=== PATIENT | female | born 1955 | race African-American/Black ===

== ENCOUNTER 2016-12-26 07:27 | Day surgery (SDC) | payer BC ==
[2016-12-22 16:28] LABS: Basophils # (auto) 0 uL; Basophils % (auto) 0.9 % (0.0-2.0); Eosinophils # (auto) 0.6 uL; Eosinophils % (auto) 10.4 % (0.0-7.0); Hematocrit 39.3 % (36.0-46.0); Hemoglobin 12.9 g/dL (12.2-16.2); Lymphocytes % (auto) 34.7 % (10.0-50.0); Mean Corpuscular Hgb Conc. 32.8 g/dL (32.0-36.0); Mean Corpuscular Volume 85.4 fL (80.0-100.0); Mean Platelet Volume 8.8 fL (7.4-10.4); Monocytes # (auto) 0.3 uL; Monocytes % (auto) 5.5 % (0.0-12.0); Neutrophils # (auto) 2.8 uL; Neutrophils % (auto) 48.5 % (37.0-80.0); Platelet Count (auto) 298 10^3/uL (140-450); Red Cell Distribution Width 15.4 % (11.6-16.0); White Blood Cell 5.8 10^3/uL (4.4-10.8)
[2016-12-22 16:35] LABS: Urine Bilirubin Negative (Negative); Urine Blood Negative /uL (Negative); Urine Color Yellow (Yellow); Urine Glucose Normal (Normal); Urine Ketone Negative (Negative); Urine Mucus FEW (None Seen); Urine Nitrite Negative (Negative); Urine RBC 1 /hpf (0 - 4); Urine Squamous Epithelial Cell FEW /hpf (<5); Urine Urobilinogen Normal (Negative)
[2016-12-22 16:40] LABS: INR 0.96 (0.9-1.15); Partial Thromboplastin Time 29.2 sec (22.64-33.71); Prothrombin Time 10.5 sec (9.37-12.3)
[2016-12-22 16:51] LABS: Albumin 3.4 g/dL (3.4-5.0); BUN/Creatinine Ratio 22.5; Calcium 9.2 mg/dL (8.5-10.1)
[2016-12-22 16:55] LABS: Bilirubin, Total 0.4 mg/dL (0.2-1.0); Total Protein 7.8 g/dL (6.4-8.2)
[~2016-12-26] VITALS: Ht 162.6 cm; Wt 104.3 kg
[~2016-12-26 07:27] MED LIST: ASCO100076 PO; CHOL100079 OR; CLINDAMYCIN 600MG IV 50 ML IV ONE; MELO-86 PO; MULTTAB99 PO; NAPR-223 PO; NITR-52 PO; SOLI10TA6 PO; [UNRECOGNIZED DRUG - CODE] OR
[2016-12-26] MEDS ORDERED: BUPIVACAINE 0.25% INJ 50ML VIAL ONE (08:09)
[2016-12-26] MEDS ORDERED: LIDOCAINE 1% HCL (LOCAL ANESTH.) INJ 20ML MDV ONE (08:48)
[2016-12-26] MEDS ORDERED: ONDANSETRON HCL 4 MG/2 ML VIAL ONE (09:04)
[2016-12-26] MEDS ORDERED: DEXAMETHASONE SOD PHOS 10MG/1ML VIAL INJ ONE (09:04)
[2016-12-26] MEDS ORDERED: GLYCOPYRROLATE 0.2 MG/ML 1ML VIAL ONE (09:04)
[2016-12-26] MEDS ORDERED: fentaNYL CITRATE 100 MCG/2 ML VL ONE (09:04)
[2016-12-26] MEDS ORDERED: PROPOFOL 10 MG/ML 20 ML IV ONE (09:16)
[2016-12-26] MEDS ORDERED: MORPHINE SULF(PF) 0.5MG/ML 10ML VIAL ONE (09:43)
[2016-12-26] MEDS ORDERED: LABETALOL HCL 5 MG/ML 4ML SYRINGE IV PRN (10:30)
[2016-12-26] MEDS ORDERED: ONDANSETRON HCL 4 MG/2 ML VIAL IV ONE (10:30)
[2016-12-26] MEDS ORDERED: HYDROmorphone HCL 2 MG/ML VL IV PRN (10:30)
[2016-12-26 11:34] VITALS: BP 150/90
== END 2016-12-26 11:35 | disposition home or self-care (01) ==
LOC: SUR 07:27
PROVIDERS: ATTEND Orthopaedic Surgery
DX: M23.222 Derangement of posterior horn of medial meniscus due to old tear or injury, left knee (principal); M94.262 Chondromalacia, left knee; S83.92XA Sprain of unspecified site of left knee, initial encounter; E66.01 Morbid (severe) obesity due to excess calories; Z68.41 Body mass index [BMI] 40.0-44.9, adult; X58.XXXA Exposure to other specified factors, initial encounter; Y93.9 Activity, unspecified; Y92.9 Unspecified place or not applicable; Y99.9 Unspecified external cause status; M25.862 Other specified joint disorders, left knee; Z90.710 Acquired absence of both cervix and uterus
CPT/HCPCS: 29876; 29881; 36415; 80053; 81001; 85025; 85610; 85730; J1100; J1170; J2001; J2270; J2405; J2704; J3010; J3490

== ENCOUNTER 2017-01-11 14:01 | Emergency (ER) | payer BC ==
[~2017-01-11] VITALS: Ht 162.6 cm; Wt 100.7 kg
[~2017-01-11 14:01] MED LIST changes: -CLINDAMYCIN 600MG IV 50 ML IV ONE
[2017-01-11 15:46] VITALS: BP 144/97
[2017-01-11] MEDS ORDERED: KETOROLAC TROMETH 60MG/2ML VIAL IM ONE (16:30)
== END 2017-01-11 17:45 | disposition home or self-care (01) ==
LOC: ER 14:01
DX: S09.90XA Unspecified injury of head, initial encounter (principal); M19.90 Unspecified osteoarthritis, unspecified site; D16.9 Benign neoplasm of bone and articular cartilage, unspecified; M25.562 Pain in left knee; Z88.0 Allergy status to penicillin; Z88.1 Allergy status to other antibiotic agents; Z79.899 Other long term (current) drug therapy; M47.812 Spondylosis without myelopathy or radiculopathy, cervical region; V43.52XA Car driver injured in collision with other type car in traffic accident, initial encounter; Y93.89 Activity, other specified; Y92.89 Other specified places as the place of occurrence of the external cause; Y99.8 Other external cause status
CPT/HCPCS: 70450; 72125; 96372; 99284; J1885

== ENCOUNTER → 2019-11-18 | Emergency (ER) | payer BC ==
[~2019-11-18] VITALS: Ht 162.6 cm; Wt 101.2 kg
[~2019-11-18] MED LIST changes: +ASPirin 81 mg TAB PO ONE; +LORazepam 2MG/ML-1ML VIAL IV ONE; -MELO-86 PO; +MELO1TAB56 PO
[2019-11-18 06:15] LABS: Basophils # (auto) 0.1 10 ^3/uL (0-0.2); Basophils % (auto) 0.9 % (0.0-2.0); Eosinophils # (auto) 0.6 10 ^3/uL (0-0.8); Eosinophils % (auto) 9.5 % (0.0-7.0); Hematocrit 38.6 % (36.0-46.0); Lymphocytes % (auto) 31.5 % (10.0-50.0); Mean Corpuscular Hgb Conc. 33.5 g/dL (32.0-36.0); Mean Corpuscular Volume 86.5 fL (80.0-100.0); Monocytes # (auto) 0.5 10 ^3/uL (0-1.3); Monocytes % (auto) 7.4 % (0.0-12.0); Neutrophils # (auto) 3.2 10 ^3/uL (1.6-8.6); Neutrophils % (auto) 50.7 % (37.0-80.0); Nucleated Red Blood Cells % 0.2 %; Platelet Count (auto) 259 10^3/uL (140-450); Red Blood Cells 4.46 10^6/uL (4.0-5.20); Red Cell Distribution Width 15.3 % (11.8-14.3); White Blood Cell 6.3 10^3/uL (4.4-10.8)
[2019-11-18 06:30] LABS: Chloride 103 mmol/L (98-107); Potassium 3.8 mmol/L (3.5-5.1); Sodium 138 mmol/L (136-145)
[2019-11-18 06:37] LABS: Albumin 3.4 g/dL (3.4-5.0); Anion Gap 9 (5-15); Blood Urea Nitrogen 17 mg/dL (7-18); Carbon Dioxide 26 mmol/L (21-32); GFR African American 87 mL/min; GFR Non-African American 72 mL/min; Glucose 109 mg/dL (74-106); Magnesium 1.8 mg/dL (1.6-2.6)
[2019-11-18 06:42] LABS: Alanine Aminotransferase 23 U/L (13-56); Alkaline Phosphatase 100 U/L (45-117); Aspartate Aminotransferase 18 U/L (15-37); Bilirubin, Total 0.3 mg/dL (0.2-1.0); Total Protein 8.1 g/dL (6.4-8.2)
[2019-11-18 08:40] VITALS: BP 173/79
[2019-11-18 09:08] LABS: Urine Bacteria FEW /hpf (None Seen); Urine Blood Negative /uL (Negative); Urine Specific Gravity 1.004 (1.001-1.035); Urine WBC 4 /hpf (0 - 5)
== END | disposition home or self-care (01) ==
LOC: ER 05:13
DX: R00.1 Bradycardia, unspecified (principal); F41.9 Anxiety disorder, unspecified; N39.0 Urinary tract infection, site not specified; R94.6 Abnormal results of thyroid function studies; Z88.1 Allergy status to other antibiotic agents; Z88.2 Allergy status to sulfonamides; Z88.8 Allergy status to other drugs, medicaments and biological substances; Z79.899 Other long term (current) drug therapy
CPT/HCPCS: 36415; 71045; 80053; 81001; 83735; 84443; 84484; 85025; 93005; 96374; 99285; J2060

== ENCOUNTER → 2021-06-20 | Outpatient (CLI) | payer BC ==
[2021-06-20] VITALS (7 sets, daily range): BP systolic 140–153; BP diastolic 71–80
[~2021-06-20] VITALS: Ht 162.6 cm; Wt 104.3 kg
[~2021-06-20] MED LIST changes: +ACETAMINOPHEN 325 MG TAB PO ONE; -ASPirin 81 mg TAB PO ONE; -LORazepam 2MG/ML-1ML VIAL IV ONE; +REGENERON 1200mg/250ml NS 250 ML IV ONE
== END | disposition home or self-care (01) ==
LOC: ER 09:39
PROVIDERS: ATTEND Internal Medicine
DX: U07.1 COVID-19 (principal); F41.9 Anxiety disorder, unspecified; Z79.899 Other long term (current) drug therapy
CPT/HCPCS: J7050; M0243; Q0244